=== PATIENT | female | born 1970 | race Two or more races ===

== ENCOUNTER 2018-04-03 12:25 | Emergency (ER) | payer OTHER ==
[~2018-04-03] VITALS: Ht 160 cm; Wt 108.0 kg
[~2018-04-03 12:25] MED LIST: ZYRTEC10 M3 PO
[2018-04-03] MEDS ORDERED: MAXALT10 MG PO (12:38)
== END 2018-04-03 14:46 | disposition home or self-care (01) ==
LOC: ER 12:25
DX: I10 Essential (primary) hypertension (principal)

== ENCOUNTER 2018-06-03 09:57 | Outpatient (CLI) | payer OTHER ==
[~2018-06-03 09:57] MED LIST changes: +MAXALT10 MG PO
== END 2018-06-03 10:08 | disposition home or self-care (01) ==
LOC: SONOGRAMA 09:57
DX: E04.2 Nontoxic multinodular goiter (principal); D86.0 Sarcoidosis of lung

== ENCOUNTER 2018-06-05 09:25 | Outpatient (CLI) | payer OTHER | END 2018-06-05 09:31 | disposition home or self-care (01) | LOC: SONOGRAMA 09:25 | DX: D47.2 Monoclonal gammopathy (principal) ==

== ENCOUNTER 2018-11-07 14:08 | Emergency (ER) | payer OTHER ==
[~2018-11-07] VITALS: Ht 160 cm; Wt 104.3 kg
== END 2018-11-07 17:01 | disposition home or self-care (01) ==
LOC: ER 14:08
DX: Z04.1 Encounter for examination and observation following transport accident (principal); V49.88XA Car occupant (driver) (passenger) injured in other specified transport accidents, initial encounter; Y93.89 Activity, other specified; Y92.488 Other paved roadways as the place of occurrence of the external cause; Y99.8 Other external cause status

== ENCOUNTER 2018-11-10 07:44 | Outpatient (CLI) | payer OTHER | END 2018-11-10 07:56 | disposition home or self-care (01) | LOC: RAD 07:44 | DX: M79.603 Pain in arm, unspecified (principal); M79.631 Pain in right forearm; G89.11 Acute pain due to trauma ==

== ENCOUNTER 2018-12-23 09:15 | Outpatient (CLI) | payer OTHER | END 2018-12-23 09:27 | disposition home or self-care (01) | LOC: MAMO-SONO 09:15 | DX: N60.11 Diffuse cystic mastopathy of right breast (principal); N60.12 Diffuse cystic mastopathy of left breast; Z12.31 Encounter for screening mammogram for malignant neoplasm of breast ==

== ENCOUNTER 2019-10-07 06:19 | Emergency (ER) | payer OTHER ==
[~2019-10-07] VITALS: Ht 160 cm; Wt 108.9 kg
== END 2019-10-07 10:43 | disposition home or self-care (01) ==
LOC: ER 06:19
DX: R50.9 Fever, unspecified (principal); B34.9 Viral infection, unspecified

== ENCOUNTER → 2019-10-12 | Outpatient (CLI) | payer OTHER | END | disposition home or self-care (01) | LOC: RAD 13:21 | DX: J18.8 Other pneumonia, unspecified organism (principal); B96.0 Mycoplasma pneumoniae [M. pneumoniae] as the cause of diseases classified elsewhere; N28.89 Other specified disorders of kidney and ureter; C64.9 Malignant neoplasm of unspecified kidney, except renal pelvis ==

== ENCOUNTER 2021-04-11 07:18 | Outpatient (CLI) | payer OTHER | END 2021-04-11 07:29 | disposition home or self-care (01) | LOC: SONOGRAMA 07:18 | DX: N30.81 Other cystitis with hematuria (principal); K74.69 Other cirrhosis of liver ==

== ENCOUNTER 2021-09-05 14:22 | Outpatient (CLI) | payer OTHER | END 2021-09-05 14:30 | disposition home or self-care (01) | LOC: MAMO-SONO 14:22 | PROVIDERS: ATTEND Obstetrics & Gynecology | DX: N64.4 Mastodynia (principal); N63.0 Unspecified lump in unspecified breast; N93.9 Abnormal uterine and vaginal bleeding, unspecified ==